=== PATIENT | male | born 1990 ===

== ENCOUNTER 2017-08-30 14:24 | Emergency (ER) | payer OTHER ==
[2017-08-30 14:34] VITALS: BP 158/65; PULSE 118; RESP 18; TEMP 100.3; O2SAT 99
[2017-08-30] MEDS ORDERED: Sodium Chloride 0.9% 1,000 ML IV STA (14:40)
--- NOTE | 2017-08-30 14:43 | ED PDOC ---
HPI: Abdomen Time Seen by Provider: 08/30/17 14:36 Chief Complaint (Nursing): Abdominal Pain History Per: Patient Onset/Duration Of Symptoms: Days (2) Current Symptoms Are (Timing): Still Present Severity: Mild Pain Scale Rating Of: 2 Location Of Pain/Discomfort: RLQ, LLQ, Suprapubic Quality Of Discomfort: Unable To Describe Associated Symptoms: Fever, Diarrhea. denies: Urinary Symptoms Exacerbating Factors: None Alleviating Factors: None Additional Complaint(s): Lower abd pain assoc with diarrhea and fever, x 2 days. No vomiting or blood in stools. No urinary sxs. Past Medical History Vital Signs: Last Vital Signs Temp 100.3 F H 08/30/17 14:30 Pulse 118 H 08/30/17 14:30 Resp 18 08/30/17 14:30 BP 158/65 H 08/30/17 14:30 Pulse Ox 99 08/30/17 14:43 - Medical History PMH: No Chronic Diseases - Family History Family History: States: Unknown Family Hx - Home Medications Home Medications: Ambulatory Orders Medication Instructions Recorded Atropine/Diphenoxylate [Lonox 1 tab PO Q8 #10 tab 08/30/17 0.025 MG-2.5 MG] Ciprofloxacin HCl [Cipro] 500 mg PO BID #20 tab 08/30/17 - Allergies Allergies/Adverse Reactions: Allergies Allergy/AdvReac Type Severity Reaction Status Date / Time No Known Allergies Allergy Verified 08/30/17 14:30 Review of Systems ROS Statement: Except As Marked, All Systems Reviewed And Found Negative Constitutional: Positive for: Fever Gastrointestinal: Positive for: Abdominal Pain, Diarrhea Physical Exam - Reviewed Nursing Documentation Reviewed: Yes Vital Signs Reviewed: Yes - Physical Exam Appears: Positive for: Non-toxic, No Acute Distress Head Exam: Positive for: ATRAUMATIC, NORMAL INSPECTION, NORMOCEPHALIC Skin: Positive for: Normal Color, Warm, DRY Eye Exam: Positive for: EOMI, Normal appearance, PERRL ENT: Positive for: Normal ENT Inspection Neck: Positive for: Normal, Painless ROM Cardiovascular/Chest: Positive for: Regular Rate, Rhythm Respiratory: Positive for: CNT, Normal Breath Sounds Gastrointestinal/Abdominal: Positive for: Soft, Tenderness (Suparpubic and lower quads bilat.) Back: Positive for: Normal Inspection. Negative for: L CVA Tenderness, R CVA Tenderness Extremity: Positive for: Normal ROM Neurologic/Psych: Positive for: Alert, Oriented - Laboratory Results Result Diagrams: 08/30/17 15:06 08/30/17 15:06 - ECG O2 Sat by Pulse Oximetry: 99 Disposition - Clinical Impression Clinical Impression: Enteritis - Patient ED Disposition Is Patient to be Admitted: No Counseled Patient/Family Regarding: Studies Performed, Diagnosis, Need For Followup, Rx Given - Disposition Referrals: Ruben Lewis MD [Staff Provider] - Disposition: Routine/Home Disposition Time: 18:10 Condition: FAIR Prescriptions: Atropine/Diphenoxylate [Lonox 0.025 MG-2.5 MG] 1 tab PO Q8 #10 tab Ciprofloxacin HCl [Cipro] 500 mg PO BID #20 tab Instructions: Inflammatory Bowel Disease Forms: [facility] (Thai) Print Language: NEPALI
[2017-08-30 15:20] LABS: ALB/GLOB RATIO 1.1 (1.0-2.1); ALBUMIN 4.4 g/dL (3.5-5.0); ALT/SGPT 145 U/L (21-72); AST/SGOT 53 U/L (17-59); BLOOD UREA NITROGEN 10 mg/dl (9-20); CALCIUM 9.4 mg/dL (8.4-10.2); GFR AFRICAN-AMERICAN > 60; GFR NON-AFRICAN AMERICAN > 60
[2017-08-30 15:26] LABS: BASO % 0.4 % (0.0-2.0); EOS % 0.5 % (0.0-4.0); HEMOGLOBIN 16.6 g/dL (12.0-18.0); LYMPH # 0.8 K/uL (1.0-4.3); MEAN CELL VOLUME 86.6 fl (80.0-94.0); MEAN CORPUSCULAR HEMOGLOBIN 29.1 pg (27.0-31.0); MEAN CORPUSCULAR HGB CONC 33.6 g/dL (33.0-37.0); MEAN PLATELET VOLUME 9.6 fl (7.2-11.7); MONO # 0.8 K/uL (0.0-0.8); MONO % 10.2 % (0.0-10.0); NEUT % 77.9 % (50.0-75.0); RBC 5.72 Mil/uL (4.40-5.90); RED CELL DISTRIBUTION WIDTH 13.4 % (11.5-14.5); WHITE BLOOD COUNT 7.7 K/uL (4.8-10.8)
[2017-08-30] MEDS ORDERED: Sodium Chloride 0.9% 100 ML ONE (16:52)
[2017-08-30] MEDS ORDERED: Iohexol 300 100 ML IJ ONE (16:52)
--- NOTE | 2017-08-30 17:53 | CT ---
PROCEDURE: CT Abdomen and Pelvis with contrast HISTORY: abd pain, diarrhea COMPARISON: None. TECHNIQUE: Following the intravenous administration of iodinated contrast material, a CT examination of the abdomen and pelvis performed from the domes of the diaphragms to the symphysis pubis with reformatted datasets provided not only axial but also sagittal and coronal planes. Oral contrast was not administered as per referring physician request. Contrast dose: Omnipaque 300, 95 cc Radiation dose: Total exam DLP = 505.06 mGy-cm. This CT exam was performed using one or more of the following dose reduction techniques: Automated exposure control, adjustment of the mA and/or kV according to patient size, and/or use of iterative reconstruction technique. FINDINGS: LOWER THORAX: Unremarkable. LIVER: Diminished attenuation is seen throughout the liver suggests a hepatic steatosis. No definitive hepatic mass or intrahepatic biliary dilatation is appreciable. GALLBLADDER AND BILE DUCTS: Unremarkable. PANCREAS: Unremarkable. No gross lesion or ductal dilatation. SPLEEN: Unremarkable. ADRENALS: Unremarkable. No mass. KIDNEYS AND URETERS: Unremarkable. No hydronephrosis. No solid mass. VASCULATURE: Unremarkable. No aortic aneurysm. BOWEL: The stomach is distended with retained food and fluid. There is no bowel obstruction, mesenteric edema free intrarenal gas collection or ascites throughout the abdomen. Numerous central mesenteric lymph nodes appear shotty inter not grossly enlarged but may reflect mesenteric adenitis. Further, fluid mildly distends loops of small bowel relatively diffusely and there is fluid retained throughout the large bowel and on a [id number] basis as well. There is borderline thickening of small bowel and may reflect enteritis. No definite pattern of colitis however. APPENDIX: Normal appendix. LYMPH NODES: As above in bowel section. BLADDER: Unremarkable. REPRODUCTIVE: Unremarkable. BONES: No acute fracture. OTHER FINDINGS: None. IMPRESSION: Fluid-filled small large-bowel loops are appreciated pattern and is compatible the clinical history of diarrhea. Mild enteritis is not excluded. No definite pattern of colitis. No measure edema, ascites or free intraperitoneal gas. Potential mesenteric adenitis as per above. Hepatic steatosis.
== END 2017-08-30 19:03 | disposition home or self-care (01) ==
LOC: H.ER 14:24
DX: K52.9 Noninfective gastroenteritis and colitis, unspecified (principal); K76.0 Fatty (change of) liver, not elsewhere classified
CPT/HCPCS: 74177; 80053; 85025; 87040; 87086; 99282; J7040; Q9967